=== PATIENT | female | born 1955 ===

== ENCOUNTER 2021-11-16 11:07 | Emergency (ER) | payer MEDICARE, OTHER ==
[2021-11-16] MEDS ORDERED: Sodium Chloride 0.9% 1,000 ML IV SCH (11:45)
[2021-11-16] MEDS: Sodium Chloride 0.9% 10 ML Syringe FLUSH PRN ×2 (11:54→12:54)
[2021-11-16] MEDS ORDERED: Sodium Chloride 0.9% 10 ML Syringe FLUSH ONE (12:37)
[2021-11-16] MEDS ORDERED: Iopamidol 755 Mg/ML 100 ML Bottle IVPUSH ONE (12:37)
[2021-11-16] MEDS ORDERED: Sodium Chloride 0.9% 100 ML IV SCH (12:45)
[2021-11-16] MEDS ORDERED: Aspirin 325 MG Tab.EC PO ONE (16:26)
== END 2021-11-16 16:50 | disposition home or self-care (01) ==
LOC: JD.ED 11:07
DX: R07.89 Other chest pain (principal); I10 Essential (primary) hypertension; K21.9 Gastro-esophageal reflux disease without esophagitis; Z88.2 Allergy status to sulfonamides; Z88.5 Allergy status to narcotic agent; Z88.8 Allergy status to other drugs, medicaments and biological substances; Z79.82 Long term (current) use of aspirin
CPT/HCPCS: 36415; 71045; 71275; 80053; 83880; 84484; 85025; 85379; 85610; 93005; 99285; J7030; Q9967; 93010; J3490